=== PATIENT | female | born 1965 | race Caucasian/White ===

== ENCOUNTER → 2017-07-29 | Outpatient (CLI) | payer OTHER ==
[~2017-07-29] MED LIST: ADVA250A INH; ALBU0.086 INH; AMBI5TAB PO; BECL80AE; DIPH1TAB36 PO; HYDR12.56 PO; LESSTAB; LOVA10TA PO; MEDR4PAK3 PO; NEBUKIT4 XX; OMEP20CA5 PO; SYNT25TA PO; XYZA5TAB2 PO; ZITH250T PO
--- NOTE | 2017-07-31 12:24 | RSPPFT ---
DATE OF PROCEDURE: 07/29/17 COMMENTS: Spirometry with FVC of 1.9 at 60% of predicted, FEV1 of 1.5 at 58%, FEV1/FVC ratio is normal. Flow is decreased at FEF 50, FEF 75 and FEF 25-75. Lung volumes show residual volume is decreased. TLC is decreased. Diffusion capacity is normal when corrected for lung volume. There is a good response after bronchodilator treatment. Post-bronchodilator study shows mild improvement. Room air arterial blood gases show pH of 7.42, PCO2 of 39, PO2 of 89, BiCarb of 25 and O2 Saturation at 95%. IMPRESSION: 1, Moderately severe obstructive disease. 2. Additional restrictive disease is also present. 3. Lung volumes are decreased. 4. Good response after bronchodilator treatment. 5. Diffusion capacity is normal when corrected for alveolar volume. 6. Room air blood gases show normal oxygenation.
== END ==
LOC: HRSP 12:16
PROVIDERS: ATTEND Specialist
DX: J40 Bronchitis, not specified as acute or chronic (principal)
CPT/HCPCS: 36600; 82805; 94060; 94726; 94729